=== PATIENT | female | born 1970 | race Caucasian/White ===

== ENCOUNTER → 2016-09-26 | Outpatient (CLI) | payer BC ==
--- NOTE | 2016-09-26 15:39 | DIAGNOSTIC IMAGING REPORT ---
LEFT HIP UNILATERAL 2 VIEWS CLINICAL HISTORY: HIP PAIN COMPARISON: None. DISCUSSION: No fractures or dislocations are visualized. There are no erosive or destructive changes. IMPRESSION: Unremarkable conventional radiographic evaluation of the left hip for age Electronically signed by: Alonzo Schwartz M.D. 09/26/2016 3:37 PM Dictated Date/Time: 09/26/2016 3:37 PM
--- NOTE | 2016-09-26 15:41 | DIAGNOSTIC IMAGING REPORT ---
RIGHT HIP 2 VIEWS HISTORY: HIP PAIN Right COMPARISON: Right hip . FINDINGS: There is no fracture or dislocation. Soft tissues are unremarkable. Mild cartilage space narrowing within the right hip. IMPRESSION: Mild right hip osteoarthritis, unchanged. No fracture or dislocation within the right hip. Electronically signed by: Alonso Azevedo M.D. 09/26/2016 3:39 PM Dictated Date/Time: 09/26/2016 3:38 PM
== END | disposition home or self-care (01) ==
LOC: C.RAD1850 15:20
PROVIDERS: ATTEND Internal Medicine
DX: M25.559 Pain in unspecified hip (principal)

== ENCOUNTER → 2017-02-02 | Outpatient (CLI) | payer BC ==
[~2017-02-02] MED LIST: NAPR1TAB9 PO; PSEU30TA20 PO; RXC5 PO
--- NOTE | 2017-02-02 09:53 | DIAGNOSTIC IMAGING REPORT ---
L-SPINE MIN 4 VIEWS ROUTINE CLINICAL HISTORY: M54.16 Lumbar [id number] COMPARISON STUDY: 01/09/2014 FINDINGS: There is no pathologic bowel dilatation. No fractures, subluxations, or destructive lesions are visualized. There are mild multilevel degenerative changes. IMPRESSION: Mild degenerative change. No fractures, subluxations, or destructive lesions are visualized. Electronically signed by: Alonzo Schwartz M.D. 02/02/2017 9:52 AM Dictated Date/Time: 02/02/2017 9:51 AM
== END | disposition home or self-care (01) ==
LOC: C.RAD1850 09:33
PROVIDERS: ATTEND Internal Medicine
DX: M54.16 Radiculopathy, lumbar region (principal)

== ENCOUNTER 2017-08-05 09:11 | Inpatient (IN) | payer BC ==
[2017-07-16 10:08] VITALS: BMI 34.0
--- NOTE | 2017-07-16 10:41 | PAT Medication Instructions ---
Service Date Jul 16, 2017. Current Home Medication List Naproxen (Aleve), 220 MG PO DAILY PRN for Pain Pseudoephedrine (Sudafed), 30 MG PO DAILY PRN for head cold Medication Instructions For Your Scheduled Surgery - Hold the following medications 2 weeks prior to surgery: Naproxen (Aleve), 220 MG PO DAILY PRN for Pain - Hold the following medications the morning of surgery: Pseudoephedrine (Sudafed), 30 MG PO DAILY PRN for head cold If you have any questions please call us at [phone] or [phone] or [phone]
[2017-07-16 11:27] LABS: BASO % 0.6 %; BASO ABS # 0.03 K/uL (0-0.2); COMPLETE YES; EOS % 2.5 %; HEMATOCRIT 43.2 % (37-47); IG% 0.2 %; LYMPH % 34.2 %; LYMPH ABS # 1.67 K/uL (1.2-3.4); MEAN CELL VOLUME 85.4 fL (80-100); MEAN CORPUSCULAR HEMOGLOBIN 28.1 pg (25-34); MEAN CORPUSCULAR HGB CONC 32.9 g/dl (32-36); MEAN PLATELET VOLUME 10.5 fL (7.4-10.4); MONO % 5.9 %; NEUT % 56.6 %; PLATELET COUNT 232 K/uL (130-400); RED BLOOD COUNT 5.06 M/uL (4.2-5.4); WHITE BLOOD COUNT 4.89 K/uL (4.8-10.8)
[2017-07-16 11:39] LABS: BUN/CREATININE RATIO 21.4 (10-20); CALCIUM 9.2 mg/dl (8.5-10.1); CREATININE 0.59 mg/dl (0.60-1.20); POTASSIUM 4.6 mmol/L (3.5-5.1)
[2017-07-16 11:40] LABS: URINE APPEARANCE CLEAR (CLEAR); URINE BILIRUBIN NEG (NEG); URINE COLOR YELLOW; URINE NITRITE NEG (NEG); URINE SPECIFIC GRAVITY 1.007 (1.000-1.030); UROBILINOGEN NEG (NEG); ZZUR CULT IF INDIC CLEAN CATCH NO
--- NOTE | 2017-07-16 11:43 | DIAGNOSTIC IMAGING REPORT ---
TWO VIEW CHEST CLINICAL HISTORY: Preoperative examination. FINDINGS: PA and lateral chest radiographs are compared to study dated 06/30/2012. The cardiomediastinal silhouette is unremarkable. The lungs and pleural spaces are clear. There is no pneumothorax. The bony thorax appears intact. IMPRESSION: No active disease in the chest. Electronically signed by: Campbell Pringle M.D. 07/16/2017 11:42 AM Dictated Date/Time: 07/16/2017 11:42 AM
[2017-07-16 11:46] LABS: MANUAL MICROSCOPIC REQUIRED? NO; REVIEW REQ? NO
[~2017-08-05] VITALS: Ht 162.6 cm; Wt 91.4 kg
[2017-08-05] VITALS (9 sets, daily range): BP systolic 131–141; BP diastolic 82–87; PULSE 60–86; TEMP 36.3–36.5; O2SAT 92–100; Ht 162.6 cm; Wt 91.4 kg
[~2017-08-05 09:11] MED LIST changes: +ATROPINE SULFATE 0.1 MG/ML 5ML SYR IV PRN; +CEFAZOLIN 2000MG IV PUSH 10 ML IV SCH; +EpHEDrine SULFATE INJ 50 MG/ML AMP IV PRN; +HYDROmorphone INJ 2 MG/ML SYR/VIAL IV PRN; +LACTATED RINGER'S 1000ML 1,000 ML IV SCH; +ONDANSETRON INJ 2 MG/ML 2 ML VIAL IV PRN; +PHENYLEPHRINE 100MCG/ML 5ML SYR IV PRN; -RXC5 PO
[2017-08-05] MEDS ORDERED: MIDAZOLAM HCL 1 MG/ML 2ML VIAL ONE (10:25)
[2017-08-05] MEDS ORDERED: FENTANYL CITRATE INJ 50 MCG/1 ML 2 ML VIAL ONE ×4 (10:25→13:32)
[2017-08-05] MEDS ORDERED: HYDROmorphone INJ 2 MG/ML SYR/VIAL ONE ×2 (10:46→12:18)
[2017-08-05] MEDS ORDERED: BUPIVACAINE/EPINEPHRINE 0.5% MPF 1:200,000 30 ML VIAL ONE (11:29)
--- NOTE | 2017-08-05 11:29 | History and Physical ---
History & Physical Date Aug 05, 2017. Chief Complaint Back and leg pain History of Present Illness The patient is a 47 year old female with complaints of back and leg pain Additional History Hepatic Disease: No Endocrine Disorder: No Kidney Disease: No Hypertension: No Heart Disease: No Bleeding Tendencies: No Infectious Diseases: No Allergies Coded Allergies: No Known Allergies (Verified , 08/05/17) Home Medications Scheduled PRN Naproxen (Aleve), 220 MG PO DAILY PRN for Pain Pseudoephedrine (Sudafed), 30 MG PO DAILY PRN for head cold Physical Examination Skin: warm/dry, no rash Eyes: normal inspection, EOMI, sclerae normal ENT: normal ENT inspection, pharynx normal Head: normocephalic, atraumatic Neck: supple, no adenopathy, trachea midline Respiratory/Chest: lungs clear, normal breath sounds, no respiratory distress Cardiovascular: regular rate, rhythm, no edema, no murmur Abdomen / GI: normal bowel sounds, non tender Back: normal inspection Extremities: normal inspection, normal range of motion Neurologic/Psych: no motor/sensory deficits, alert, normal reflexes, oriented x 3 Diagnosis Lumbar spinal stenosis Plan of Treatment TLIF L5-S1
--- NOTE | 2017-08-05 11:29 | History & Physical Bridge Note ---
H&P Re-Evaluation Bridge Note: I have examined the patient, reviewed the History & Physical and in the interval since the performance of the History & Physical I have noted the following changes of clinical significance: No changes noted
[2017-08-05] MEDS ORDERED: BACITRACIN 50000 UNIT VIAL ONE (11:30)
[2017-08-05] MEDS ORDERED: EpHEDrine SULFATE 50MG/5ML SYR ONE (13:00)
[2017-08-05] MEDS ORDERED: PROPOFOL IV EMULSION 10 MG/ML 20 ML VIAL IV ONE (13:00)
[2017-08-05] MEDS ORDERED: RANITIDINE HCL 25 MG/ML INJ ONE (13:00)
[2017-08-05] MEDS ORDERED: NEOSTIGMINE METHYLSULFATE 1 MG/ML 10ML VIAL ONE (13:00)
[2017-08-05] MEDS ORDERED: METOPROLOL TARTRATE 1 MG/ML VIAL ONE (13:00)
[2017-08-05] MEDS ORDERED: ROCURONIUM BROMIDE 10 MG/ML 5 ML VIAL IV ONE (13:00)
[2017-08-05] MEDS ORDERED: DEXAMETHASONE SOD INJ 4 MG/ML VIAL ONE (13:00)
[2017-08-05] MEDS ORDERED: ONDANSETRON INJ 2 MG/ML 2 ML VIAL ONE ×2 (13:00)
[2017-08-05] MEDS ORDERED: DiphenhydrAMINE HCL 50 MG/ML VIAL ONE (13:00)
[2017-08-05] MEDS ORDERED: GLYCOPYRROLATE INJ 0.2 MG/ML VIAL ONE (13:00)
[2017-08-05] MEDS ORDERED: LIDOCAINE HCL 2% 2 ML VIAL (20MG/ML) ONE (13:00)
[2017-08-05] MEDS ORDERED: ESMOLOL HCL 10 MG/ML 10 ML VIAL ONE (13:00)
[2017-08-05] MEDS ORDERED: SODIUM CHLORIDE 0.9% 1000ML 1,000 ML IV SCH (13:20)
--- NOTE | 2017-08-05 13:25 | [facility] Operative Report ---
Operative Report Operative Date Aug 05, 2017. Pre-Operative Diagnosis Lumbar spinal stenosis Post-Operative Diagnosis same as pre-operative Procedure(s) Performed #1 lumbar decompression medial facetectomy foraminotomies L5-S1. #2 posterior spinal fusion L5-S1. #3 placement posterior instrumentation L5-S1. #4 interbody fusion L5-S1. #5 placement peek cage 12 x 26 mm L5-S1. #6 placement locally harvested morcellized autograft in the posterior lateral gutters. #7 placement of infuse calm sponge combined Master graft in the posterior lateral gutters and ostial amp in the interbody space. Surgeon Dr. Darin Lovell [employer] Supervisor Surgeon(s) MARCEL Monet Estimated Blood Loss 150ml Findings Severe spinal stenosis Specimens none per surgeon Description of Procedure Patient was met with preoperatively case discussed all questions were addressed. After informed consent obtained patient was taken back up suite underwent intubation placed in a prone position the [place] table top Francis frame all bony prominences well-padded eyes inspected to ensure there is no external pressure placed upon. This point lumbar spines prepped draped nostril fashion. Sharp dissection with the assistance of Bovie cautery was performed onto an exposing the lamina and transverse processes of L5 and sacral alar bilaterally. From a caudal to cephalad fashion complete laminectomy of L5 was performed including medial facet was foraminotomies. Pedicle screws then placed in L5 and S1 levels bilaterally with assistance of fluoroscopy and the probably size con placed. Through a transverse foraminal approach on the right a complete discectomy was performed and plate created to subcortical bleeding bone and a 12 x 26 millimeter peek cage filled with ostial amp bone graft was tapped in position. Brought to then compressed locked into final position bilaterally. The transverse processes of L5 and sacral alar burred to subcortical bleeding bone infuse collagen sponge mask graft locally harvested morcellized autograft was placed in the posterior lateral gutters. 15 round MOE drain inserted. Incision was then closed with 1 Vicryl in the fascia 2-0 Vicryl subcutaneous cutaneously 4 Monocryl for final skin closure Steri-Strip sterile dressing placed. Patient we can take PACU stable condition. Please note Lina Connor was present throughout the entire procedure involved in patient positioning complex portions of the surgery and final skin closure. I attest to the content of the Intraoperative Record and any orders documented therein. Any exceptions are noted below.
[2017-08-05] MEDS ORDERED: FLOSEAL HEMOSTATIC MATRIX 10ML TOP ONE (13:27)
[2017-08-05] MEDS ORDERED: BISACODYL 10 MG SUPP PR PRN (13:30)
[2017-08-05] MEDS ORDERED: MAGNESIUM HYDROXIDE SUSP 30 ML UDC PO PRN (13:30)
[2017-08-05] MEDS ORDERED: DO NOT ADMINISTER FLU VACCINE PRN ×3 (13:30)
[2017-08-05] MEDS ORDERED: FAMOTIDINE 20 MG TAB PO PRN (13:30)
[2017-08-05] MEDS ORDERED: PSEUDOEPHEDRINE HCL 30 MG TAB PO PRN (13:30)
[2017-08-05] MEDS ORDERED: METOCLOPRAMIDE HCL INJ 5 MG/ML 2 ML VIAL IV PRN (13:30)
[2017-08-05] MEDS ORDERED: hydrOXYzine HCL 25 MG TAB PO PRN (13:30)
[2017-08-05] MEDS ORDERED: NALOXONE HCL 0.4 MG/1 ML VIAL/CARP IV PRN ×2 (13:30)
[2017-08-05] MEDS ORDERED: ALUMINUM/MAGNESIUM SUSP 30 ML UDC PO PRN (13:30)
[2017-08-05] MEDS ORDERED: DO NOT ADMINISTER PNEUMOCOCCAL VACCINE PRN ×2 (13:30)
[2017-08-05] MEDS ORDERED: HYDROmorphone HCL 0.5MG/ML 50 ML CASSETTE IV PRN (13:30)
[2017-08-05] MEDS ORDERED: PROMETHAZINE HCL INJ 12.5 MG in SODIUM CHLORIDE 0.9% 50ML 50 ML IV PRN (13:30)
[2017-08-05] MEDS ORDERED: ACETAMINOPHEN 500 MG TAB PO PRN (13:30)
[2017-08-05] MEDS ORDERED: ACETAMINOPHEN IV 100 ML IV PRN (13:30)
[2017-08-05] MEDS ORDERED: LORAZEPAM INJ 0.5 MG in SYRINGE 0 ML IV PRN (13:30)
[2017-08-05] MEDS ORDERED: LORAZEPAM 0.5 MG TAB PO PRN (13:30)
[2017-08-05] MEDS ORDERED: SOD PHOSPHATE/SOD BIPHOSPHATE ENEMA 132 ML BTL PR PRN (13:30)
[2017-08-05] MEDS ORDERED: HYDROmorphone HCL 0.5MG/ML 50 ML CASSETTE ONE (13:51)
--- NOTE | 2017-08-05 13:54 | Anesthesiology Progress Note ---
Anesthesia Post Op Note Date & Time Aug 05, 2017 at 13:54 Vital Signs Pain Intensity: 0 Vital Signs Past 12 Hours Date Time Temp Pulse Resp B/P (MAP) Pulse Ox O2 Delivery O2 Flow Rate FiO2 08/05/17 13:50 85 16 154/83 99 Oxymask 10 08/05/17 13:41 36.7 82 16 145/80 98 Oxymask 10 08/05/17 09:35 36.3 85 20 99 Room Air Notes Mental Status: alert / awake / arousable, participated in evaluation Pt Amnestic to Procedure: Yes Nausea / Vomiting: adequately controlled Pain: adequately controlled Airway Patency, RR, SpO2: stable & adequate BP & HR: stable & adequate Hydration State: stable & adequate Anesthetic Complications: no major complications apparent
[2017-08-05] MEDS ORDERED: ATROPINE SULFATE 0.1 MG/ML 5ML SYR IV PRN (14:00)
[2017-08-05] MEDS ORDERED: EpHEDrine SULFATE INJ 50 MG/ML AMP IV PRN (14:00)
[2017-08-05] MEDS ORDERED: ONDANSETRON INJ 2 MG/ML 2 ML VIAL IV PRN (14:00)
[2017-08-05] MEDS ORDERED: PHENYLEPHRINE 100MCG/ML 5ML SYR IV PRN (14:00)
--- NOTE | 2017-08-05 14:05 | DIAGNOSTIC IMAGING REPORT ---
LUMBAR SPINE, INTRAOPERATIVE FLUOROSCOPY HISTORY: L5-S1 fusion. FLUOROSCOPY TIME: 16 seconds. FINDINGS: Intraoperative fluoroscopy was provided for the lumbar spine. 2 fluoroscopic spot images were obtained. Posterior decompression and fusion at L5-S1 with pedicle screws and rods. The hardware appears intact. IMPRESSION: Fluoroscopy provided for a L5-S1 posterior decompression and fusion. Electronically signed by: Alonso Azevedo M.D. 08/05/2017 2:03 PM Dictated Date/Time: 08/05/2017 2:03 PM
[2017-08-05] MEDS: HYDROmorphone INJ 2 MG/ML SYR/VIAL IV PRN ×2 (14:10→14:15)
[2017-08-05] MEDS: LACTATED RINGER'S 1000ML 1,000 ML IV SCH ×2 (17:27→19:57)
[2017-08-05] MEDS: ONDANSETRON INJ 2 MG/ML 2 ML VIAL IV PRN (17:27)
[2017-08-05] MEDS: CEFAZOLIN IV 2,000 MG in SYRINGE 0 ML IV SCH (20:01)
[2017-08-05] MEDS: DOCUSATE SODIUM/SENNA 50/8.6MG TAB PO SCH (21:00)
[2017-08-05] MEDS: DEXAMETHASONE INJ 6 MG in SYRINGE 0 ML IV SCH (21:01)
[2017-08-06 03:00] VITALS: BP 149/91; PULSE 69; TEMP 36.5; O2SAT 97
[2017-08-06] MEDS: CEFAZOLIN IV 2,000 MG in SYRINGE 0 ML IV SCH (03:14)
[2017-08-06] MEDS: LACTATED RINGER'S 1000ML 1,000 ML IV SCH (03:14)
[2017-08-06] MEDS: ONDANSETRON INJ 2 MG/ML 2 ML VIAL IV PRN (03:29)
[2017-08-06] MEDS ORDERED: NURSING DECISION MEDICATION ORDER SCH (05:15)
[2017-08-06] MEDS: DEXAMETHASONE INJ 6 MG in SYRINGE 0 ML IV SCH ×2 (05:31→12:57)
[2017-08-06] MEDS ORDERED: HYDROmorphone INJ 0.5 MG/0.5 ML SYR IV PRN (06:00)
[2017-08-06] MEDS ORDERED: DC PCA ONE (06:00)
[2017-08-06 07:00] VITALS: BP 147/85; PULSE 76; TEMP 36.6; O2SAT 98
[2017-08-06 07:03] LABS: COMPLETE YES; HEMATOCRIT 40.7 % (37-47); IG% 0.3 %; LYMPH % 7.2 %; LYMPH ABS # 0.84 K/uL (1.2-3.4); MEAN CELL VOLUME 85.5 fL (80-100); MEAN CORPUSCULAR HEMOGLOBIN 27.5 pg (25-34); MEAN CORPUSCULAR HGB CONC 32.2 g/dl (32-36); MONO % 4.2 %; NEUT % 88.3 %; PLATELET COUNT 251 K/uL (130-400); RED BLOOD COUNT 4.76 M/uL (4.2-5.4); WHITE BLOOD COUNT 11.73 K/uL (4.8-10.8)
[2017-08-06] MEDS: OXYCODONE HCL IR 5 MG TAB (IMMEDIATE RELEASE) PO PRN ×3 (07:30→18:21)
[2017-08-06 07:33] LABS: BUN/CREATININE RATIO 16.3 (10-20); CALCIUM 9.2 mg/dl (8.5-10.1); CREATININE 0.75 mg/dl (0.60-1.20); POTASSIUM 4.2 mmol/L (3.5-5.1)
--- NOTE | 2017-08-06 09:01 | Anesthesiology Progress Note ---
Anesthesia Post Op Note Date & Time Aug 06, 2017 at 09:00 Vital Signs Pain Intensity: 5.0 Vital Signs Past 12 Hours Date Time Temp Pulse Resp B/P (MAP) Pulse Ox O2 Delivery O2 Flow Rate FiO2 08/06/17 07:15 Room Air 08/06/17 07:00 36.6 76 16 147/85 (105) 98 Room Air 08/06/17 03:00 36.5 69 16 149/91 (110) 97 Room Air 08/05/17 23:05 36.5 61 16 141/87 (105) 96 Room Air 08/05/17 22:30 Room Air 08/05/17 21:32 97 Room Air Notes Mental Status: alert / awake / arousable, participated in evaluation Pt Amnestic to Procedure: Yes Nausea / Vomiting: adequately controlled Pain: adequately controlled Airway Patency, RR, SpO2: stable & adequate BP & HR: stable & adequate Hydration State: stable & adequate Anesthetic Complications: no major complications apparent
--- NOTE | 2017-08-06 12:22 | Progress Note ---
Progress Note Date of Service Aug 06, 2017. Progress Note Patient is postop day #1 lumbar decompression fusion. She is up in amatory leg symptoms markedly improved. Final signs are stable. She is good strength testing. Assessment status post lumbar decompression fusion replant this time anticipate home the next day or so.
[2017-08-06 14:21] VITALS: BP 131/77; PULSE 84; TEMP 36.7; O2SAT 94
[2017-08-06 15:19] VITALS: BP 145/88; PULSE 66; TEMP 36.5; O2SAT 96
[2017-08-06] MEDS: DOCUSATE SODIUM/SENNA 50/8.6MG TAB PO SCH (21:08)
[2017-08-06 23:13] VITALS: BP 144/74; PULSE 81; TEMP 36.8; O2SAT 97
[2017-08-07] MEDS: POLYETHYLENE (MIRALAX) 17 GM PACK PO SCH ×2 (06:12→11:42)
[2017-08-07 06:31] VITALS: BP 127/77; PULSE 96; TEMP 36.6; O2SAT 98
[2017-08-07] MEDS: OXYCODONE HCL IR 5 MG TAB (IMMEDIATE RELEASE) PO PRN (07:33)
[2017-08-07 07:54] VITALS: O2SAT 96
[2017-08-07] MEDS ORDERED: ONDANSETRON 4 MG TAB PO PRN (10:00)
[2017-08-07] MEDS ORDERED: RXC5 PO (12:01)
--- NOTE | 2017-08-07 12:01 | Discharge Instructions ---
Discharge Instructions Date of Service Aug 07, 2017. Admission Reason for Admission: Lumbar Spinal Stenosis Discharge Discharge Diagnosis / Problem: lumbar stenosis Discharge Goals Goal(s): Improve function Activity Recommendations Activity Limitations: per Instructions/Follow-up section . Instructions / Follow-Up Instructions / Follow-Up ACTIVITY RECOMMENDATIONS: SELF CARE INSTRUCTIONS AFTER THORACIC/LUMBAR FUSIONS 1. You may walk to your tolerance. It is good exercise for your legs and back. Expect some back and intermittent leg aches and pains. 2. You may perform "counter-top" level activities (make a sandwich, florencio with a project, etc.). 3. No bending or lifting of more than 10 pounds or back twisting of any nature (roll like a log when turning in bed). 4. You may ride in a car for 20-30 minutes at a time. No driving until after your first visit with your doctor. 5. Frequent changes of position and restricting sitting to 30 minutes at a time will help limit the amount of back spasms and stiffness you may experience. 6. You may discontinue the use of ambulatory aids (cane, crutches, etc.) once your strength and confidence allow. 7. You may vice president for instruction the shower and let water strike your incision when you arrive home at least once daily. Do not take a tub bath, sit in a hot tub or go into a swimming pool until after your first recheck in the office. SPECIAL CARE INSTRUCTIONS: VERY IMPORTANT TO READ AND REVIEW A. Your surgical incision has been closed with a cosmetic suture under the skin that will dissolve in about 6 weeks. In 14 days, you can use a pair of clean scissors and cut the suture that is left outside of the skin at the ends of your incision. 1. The small skin tapes can be removed 7 days after surgery if they have not fallen off by that point. 2. You may keep the wound open to air as much as possible to promote healing after post-op day number 5 unless told otherwise by your doctor. 3. If you think the wound looks like it is becoming infected (redness or worsening drainage) and/or you are experiencing fever, chill or worsening back pain and muscle spasms, contact the office so that we may evaluate you as soon as possible. B. Complications are uncommon, but please contact us if you have any signs or symptoms of: 1. wound infection (fever higher than 102.5 degrees F, redness, separation of wound, drainage, or increasing pain from the incision) 2. blood clots in legs (pain, swelling, redness and warmth in legs) 3. urinary tract infection (fever higher than 102.5 degrees F, burning upon urination or increased frequency of urination) 4. nerve problems (inability to walk on your toes or heels, numbness, loss of bowel or bladder control) 5. any other symptoms that concern you C. Please call the office at if you have any concerns or questions about your operation or recovery. D. No smoking! Smoking drastically decreases the chance of a solid fusion. E. Do not take any anti-inflammatory medications (Indocin, Advil, Motrin, Aspirin, Naprosyn, etc.) as these may inhibit the chance of a solid fusion. Tylenol is okay to take for pain. MANAGING PAIN AFTER SPINAL SURGERY 1. Narcotic medication is intended for short-term use and will be provided for surgical pain. Surgical pain usually lasts for a period of 4-6 weeks. Narcotic medication includes Percocet, Vicodin, Darvocet, Tylenol #3 or Lortab. 2. Longer-term pain is more appropriately treated with non-narcotic medication such as Tylenol ES. 3. Muscle spasm is not appropriately treated with narcotics. Muscle relaxers such as Soma, Flexeril or Skelaxin can be used along with Tylenol ES. 4. Remember that we all live with some "aches and pains". This is not unusual or uncommon after an injury or as we get older. a. Back pain is expected and may include muscle spasms for 4 to 6 weeks after surgery. The pain should gradually improve. If the pain worsens for no apparent reason, please contact the office. b. Intermittent leg pain may also be experienced and should not be concerned about unless it worsens for no apparent reason. If so, please contact the office. 5. We will provide appropriate medication within the normal guidelines of their prescribed use. We will also be very cautious and aware of potential abuse and extended duration of patients' medication needs. a. Pain medications are for your comfort and to assist with sleep and rest so that the tissue can heal. They are not provided in order to return to normal activity and should not be used through the day. To do so or worsening pain at night can result from ongoing tissue damage and development of tolerance to the prescribed medicine. 6. Please allow 2-3 days to process refills. Prescriptions will not be mailed but must be picked up at the office. FOLLOW UP VISIT: Keep your scheduled follow-up appointment. Any questions, please call the office at . Current Hospital Diet Patient's current hospital diet: Regular Diet Discharge Diet Recommended Diet: Regular Diet Procedures Procedures Performed: #1 lumbar decompression medial facetectomy foraminotomies L5-S1. #2 posterior spinal fusion L5-S1. #3 placement posterior instrumentation L5-S1. #4 interbody fusion L5-S1. #5 placement peek cage 12 x 26 mm L5-S1. #6 placement locally harvested morcellized autograft in the posterior lateral gutters. #7 placement of infuse calm sponge combined Master graft in the posterior lateral gutters and ostial amp in the interbody space. Pending Studies Studies pending at discharge: no Medical Emergencies . Who to Call and When: Medical Emergencies: If at any time you feel your situation is an emergency, please call 911 immediately. . Non-Emergent Contact Non-Emergency issues call your: Primary Care Provider . "Provider Documentation" section prepared by Darin Lovell. . VTE Core Measure Inpt VTE Proph given/why not?: Kelly Newman, [facility]
[2017-08-07 12:03] VITALS: BP 128/78; PULSE 80; TEMP 36.5; O2SAT 100
[2017-08-07 12:15] VITALS: BP 128/78; PULSE 80; TEMP 36.5; O2SAT 100
--- NOTE | 2017-08-07 14:20 | Discharge Summary ---
Orthopedic Discharge Summary Admission Date/Reason Aug 05, 2017 at 11:30 Lumbar Spinal Stenosis. Discharge Date/Disposition Aug 07, 2017 Home Diagnosis Principal Diagnosis: Lumbar spinal stenosis Admission Physical Exam As per Admitting History & Physical. Hospital Course Patient underwent lumbar decompression fusion tolerated this well as taken to the orthopedic floor. Postoperative day #1 she was up in amatory leg symptoms markedly improved. She progressed to postoperative day #2. Socially he was discharged home discharge orders and instructions found on the chart for further review. Discharge Instructions Please refer to the electronic Patient Visit Report (Discharge Instructions) for additional information.
== END 2017-08-07 14:57 | disposition home or self-care (01) | DRG 455 ==
LOC: C.ACU 09:11 → C.3E 11:30 → ENRESERV 14:36
PROVIDERS: ADMIT Orthopaedic Surgery Orthopaedic Surgery of the Spine; ATTEND Orthopaedic Surgery Orthopaedic Surgery of the Spine
PROC: 0SG30AJ Fusion of Lumbosacral Joint with Interbody Fusion Device, Posterior Approach, Anterior Column, Open Approach (ICD-10-PCS; principal; 2017-08-05 11:15)
PROC: 0SG3071 Fusion of Lumbosacral Joint with Autologous Tissue Substitute, Posterior Approach, Posterior Column, Open Approach (ICD-10-PCS; principal; 2017-08-05 11:15)
PROC: 0ST40ZZ Resection of Lumbosacral Disc, Open Approach (ICD-10-PCS; principal; 2017-08-05 11:15)
DX: M48.07 Spinal stenosis, lumbosacral region (principal); E66.9 Obesity, unspecified; Z68.34 Body mass index [BMI] 34.0-34.9, adult

== ENCOUNTER → 2017-12-09 | Outpatient (CLI) | payer OTHER ==
[~2017-12-09] MED LIST changes: -ATROPINE SULFATE 0.1 MG/ML 5ML SYR IV PRN; -CEFAZOLIN 2000MG IV PUSH 10 ML IV SCH; -EpHEDrine SULFATE INJ 50 MG/ML AMP IV PRN; -HYDROmorphone INJ 2 MG/ML SYR/VIAL IV PRN; -LACTATED RINGER'S 1000ML 1,000 ML IV SCH; -NAPR1TAB9 PO; -ONDANSETRON INJ 2 MG/ML 2 ML VIAL IV PRN; -PHENYLEPHRINE 100MCG/ML 5ML SYR IV PRN; +RXC5 PO
--- NOTE | 2017-12-09 14:13 | MAMMOGRAPHY REPORT ---
BILATERAL DIGITAL SCREENING MAMMOGRAM TOMOSYNTHESIS WITH CAD: 12/09/2017 CLINICAL HISTORY: Routine screening. Patient has no complaints. TECHNIQUE: Breast tomosynthesis in addition to standard 2D mammography was performed. Current study was also evaluated with a Computer Aided Detection (CAD) system. COMPARISON: Comparison is made to exams dated: 08/26/2016 mammogram, 08/22/2015 mammogram, 08/15/2014 mammogram, 08/11/2013 mammogram, 08/04/2012 mammogram, and 07/30/2011 ultrasound - [facility]. BREAST COMPOSITION: There are scattered areas of fibroglandular density in both breasts. FINDINGS: No suspicious masses, calcifications, or areas of architectural distortion are noted in ei ther breast. There has been no significant interval change compared to prior exams. IMPRESSION: ACR BI-RADS CATEGORY 1: NEGATIVE There is no mammographic evidence of malignancy. A 1 year screening mammogram is recommended. The pa tient will receive written notification of the results. Approximately 10% of breast cancers are not detected with mammography. A negative mammographic report should not delay biopsy if a clinically suggestive mass is present. Clover Rodarte M.D. /:12/09/2017 09:38:47 Award Clerk: Gabrielle ROTH(R)(M), [facility] letter sent: Normal 1/2 BI-RADS Code: ACR BI-RADS Category 1: Negative
== END | disposition home or self-care (01) ==
LOC: C.MAMM 08:09
PROVIDERS: ATTEND Obstetrics & Gynecology
DX: Z12.31 Encounter for screening mammogram for malignant neoplasm of breast (principal)